=== PATIENT | female | born 1950 | race Caucasian/White ===

== ENCOUNTER 2020-05-06 11:46 | Inpatient (IN) | payer MEDICARE, MEDICAID ==
[~2020-05-06] VITALS: Ht 165.1 cm; Wt 85.0 kg
[2020-05-06] MEDS ORDERED: RALO60 PO (12:21)
[2020-05-06] MEDS ORDERED: GABA-1216 PO (12:21)
[2020-05-06] MEDS ORDERED: OLAN10TA3 PO (12:21)
[2020-05-06 12:31] LABS: BASOPHILS % (AUTO) 0.5 % (0.0-2.0); EOSINOPHILS % (AUTO) 0.5 % (1.0-6.0); HEMATOCRIT 41.8 % (36-46); HEMOGLOBIN 13.5 g/dL (12.0-16.0); LYMPHOCYTES # (AUTO) 1.6 K/uL (1.0-4.8); LYMPHOCYTES % (AUTO) 18.9 % (22.0-44.0); MEAN CORPUSCULAR HEMOGLOBIN 28.6 pg (26.0-34.0); MEAN CORPUSCULAR HGB CONC 32.4 G/dL (31.0-37.0); MEAN CORPUSCULAR VOLUME 88 fL (80-100); MONOCYTES # (AUTO) 0.6 K/uL (0.1-1.0); MONOCYTES % (AUTO) 7.2 % (2.0-9.0); NEUTROPHILS # (AUTO) 6.1 K/uL (1.8-7.7); NEUTROPHILS % (AUTO) 72.9 % (40.0-70.0); PLATELET COUNT (AUTO) 281 K/uL (150-450); RED BLOOD CELL COUNT(AUTO) 4.74 MIL/uL (4.00-5.20); RED CELL DISTRIBUTION WIDTH 14.9 % (11.5-14.5)
[2020-05-06 12:46] LABS: ANION GAP 10 mmol/L (8-16); CALCIUM, TOTAL 8.6 mg/dL (8.8-10.5); CARBON DIOXIDE 27 mmol/L (22-29); CHLORIDE 108 mmol/L (98-107); CREATININE 0.88 mg/dL (0.60-1.30); GLOMERULAR FILTR. RATE CALC > 60 mL/min (>60); GLUCOSE,RANDOM 105 mg/dL (70-110); POTASSIUM 4.1 mmol/L (3.5-5.1); SODIUM SERUM 145 mmol/L (136-145); UREA NITROGEN, BLOOD 15 mg/dL (7-18)
[2020-05-06 12:51] LABS: ALANINE AMINOTRANSFERASE 30 U/L (12-78); ALBUMIN 3.6 g/dL (3.4-5.0); ALKALINE PHOSPHATASE 43 U/L (46-116); ASPARTATE AMINOTRANSFERASE 21 U/L (15-37); BILIRUBIN,TOTAL 0.3 mg/dL (0.1-1.0); CREATINE KINASE, TOTAL ONLY 76 U/L (26-192); TOTAL PROTEIN, SERUM 6.7 g/dL (6.4-8.2)
[2020-05-06 13:00] LABS: B-TYPE NATRIURETIC PEPTIDE < 5 pg/mL (0-100)
[2020-05-06 13:01] LABS: COVID AG,FIA SOURCE NASOPHARYNGEAL
[2020-05-06 13:20] LABS: APPEARANCE,URINE CLEAR (CLEAR); BILIRUBIN,URINE NEGATIVE (NEGATIVE); GLUCOSE, URINE (UA) NEGATIVE (NEGATIVE); KETONES,URINE NEGATIVE (NEGATIVE); LEUKOCYTE ESTERASE ,URINE NEGATIVE (NEGATIVE); NITRATE,URINE NEGATIVE (NEGATIVE); OCCULT BLOOD,URINE NEGATIVE (NEGATIVE); PROTEIN,URINE NEGATIVE (NEGATIVE); UROBILINOGEN,URINE 0.2 mg/dL (<=1.0)
[2020-05-06 13:32] LABS: INFLUENZA TYPE A NEGATIVE FOR TYPE A (NEGATIVE); INFLUENZA TYPE B NEGATIVE FOR TYPE B (NEGATIVE)
[2020-05-06 13:35] LABS: BACTERIA,URINE None Seen /HPF (None Seen); RBC,URINE None Seen /HPF (0-2); SQUAMOUS EPITHELIAL CELL,UR Few /LPF (None Seen); WBC,URINE None Seen /HPF (0-5)
[2020-05-06] MEDS ORDERED: ACETAMINOPHEN 325 MG TABLET PO PRN (14:00)
[2020-05-06] MEDS ORDERED: ONDANSETRON HCL 4 MG/2 ML VIAL IVP PRN (14:00)
[2020-05-06] MEDS ORDERED: 0.9% SODIUM CHLORIDE 10 ML SYRINGE IVP PRN (14:00)
[2020-05-07] MEDS: LORazepam 2 MG/ML VIAL IVP PRN ×2 (01:49→21:42)
[2020-05-07 09:37] VITALS: BP 154/109
[2020-05-07] MEDS ORDERED: OMEP20 PO (13:41)
[2020-05-07] MEDS: RALOXIFENE HCL 60 MG TABLET PO SCH (14:28)
[2020-05-07] MEDS: GABAPENTIN 100 MG CAPSULE PO SCH ×2 (14:29→20:23)
[2020-05-07] MEDS: OLANZapine 10 MG TABLET PO SCH ×2 (14:29→20:23)
[2020-05-07] MEDS: OMEPRAZOLE 20 MG CAPSULE PO SCH (14:29)
[2020-05-07 15:34] VITALS: BP 102/64
[2020-05-07] MEDS: BusPIRone HCL 5 MG TABLET PO SCH (20:23)
[2020-05-07 21:01] VITALS: BP 112/65
[2020-05-08 05:32] VITALS: BP 120/60
[2020-05-08 09:41] VITALS: BP 97/56
[2020-05-08] MEDS: GABAPENTIN 100 MG CAPSULE PO SCH (10:29)
[2020-05-08] MEDS: BusPIRone HCL 5 MG TABLET PO SCH (10:29)
[2020-05-08] MEDS: OMEPRAZOLE 20 MG CAPSULE PO SCH (10:29)
[2020-05-08 11:30] VITALS: BP 124/76
[2020-05-08] MEDS: OLANZapine 10 MG TABLET PO SCH (12:46)
[2020-05-08] MEDS: RALOXIFENE HCL 60 MG TABLET PO SCH (12:46)
[2020-05-08] MEDS ORDERED: BUSP5TAB20 PO (13:04)
== END 2020-05-08 15:45 | DRG 864 ==
LOC: EMS 11:46 → 5S 13:26 → 5N 13:26 → UNDOADMIN 13:26 → 5S 13:27 → 5N 13:27
PROVIDERS: ADMIT Hospitalist; ATTEND Hospitalist
DX: R50.9 Fever, unspecified (principal); K21.9 Gastro-esophageal reflux disease without esophagitis; Z20.828 Contact with and (suspected) exposure to other viral communicable diseases; F25.9 Schizoaffective disorder, unspecified; Z90.710 Acquired absence of both cervix and uterus; F41.9 Anxiety disorder, unspecified; Z79.899 Other long term (current) drug therapy
CPT/HCPCS: 83605; 87040; 87426; 87804; 93005; G0378; J2060; 36415-L1; 36415-TC; 71045-TC; U0003